=== PATIENT | female | born 2000 | race African-American/Black ===

== ENCOUNTER 2022-09-28 13:57 | Emergency (ER) | payer OTHER ==
[~2022-09-28] VITALS: Ht 167.6 cm; Wt 72.6 kg
--- NOTE | 2022-09-28 14:00 | NUR ---
PATIENT BIBS FOR ALLERGIC REACTION. A/O X 3, TOLERATING WELL ON ROOM AIR.
[2022-09-28] MEDS ORDERED: diphenhydrAMINE HCL 50 MG CAPSULE ONE (14:40)
[2022-09-28] MEDS ORDERED: FAMOTIDINE (20 MG) 20 MG TABLET ONE (14:40)
--- NOTE | 2022-09-28 14:47 | NUR ---
THROAT SWAB OBTAINED
--- NOTE | 2022-09-28 14:47 | NUR ---
URINE SAMPLE OBTAINED
--- NOTE | 2022-09-28 14:47 | NUR ---
BLOOD SAMPLES OBTAINED
[2022-09-28] MEDS ORDERED: FAMOTIDINE (20 MG) 20 MG TABLET PO ONE (15:00)
[2022-09-28] MEDS ORDERED: diphenhydrAMINE HCL 25 MG CAPSULE PO ONE (15:00)
[2022-09-28] MEDS ORDERED: EPIN0.3P3 IM (15:35)
--- NOTE | 2022-09-28 15:41 | NUR ---
Patient discharged to home in stable condition. Written and verbal after care instructions given. Patient verbalizes understanding of instruction.
[2022-09-28 16:38] VITALS: BP 146/98
== END 2022-09-28 16:38 | disposition home or self-care (01) ==
LOC: ER 14:01
DX: T78.1XXA Other adverse food reactions, not elsewhere classified, initial encounter (principal); J35.1 Hypertrophy of tonsils; J35.8 Other chronic diseases of tonsils and adenoids; Z88.0 Allergy status to penicillin
CPT/HCPCS: 99283; 87880; Q0163; 86403-TC